=== PATIENT | male | born 1990 | race Caucasian/White ===

== ENCOUNTER 2017-05-31 00:42 | Emergency (ER) | payer OTHER ==
[2017-05-31] MEDS ORDERED: Acetaminophen/oxyCODONE 325-5 MG Tab PO ONE (00:43)
[2017-05-31] MEDS ORDERED: ceFAZolin 1 GM Vial IVPUSH ONE (01:17)
--- NOTE | 2017-05-31 01:35 | EDM.PDOC ---
ED HPI GENERAL MEDICAL PROBLEM - General Chief Complaint: General Stated Complaint: ran over by forklift Time Seen by Provider: 05/31/17 00:58 Source of Information: Reports: Patient History Limitations: Reports: No Limitations - History of Present Illness INITIAL COMMENTS - FREE TEXT/NARRATIVE: This patient is a 27 year old male that presents to the ER. Patient reports that he was drinking tonight and had about 10 beers. Patient reports that him and some friends were playing on a forklift. He reports someone was driving the forklift, when he attempted to jump on the lifts, when he lost his footing. He reports he fell to the ground and the forklift ran over his right foot. Patient denies hitting his head, loc, n, v, vision changes, neck pain, back pain, face pain, chest pain, abd pain, hip/pelvis pain, leg pain, left foot pain. Patient reports his only pain complaint is to the left foot. Patient is alert and oriented. He is intoxicated, but able to stand without ataxia. Patient is talking in full and complete sentences without difficulty. Right lower extremity pulses +2. cap refill <2 sec, sensory/motor function intact, neurovascular intact. Type 1 crush injury. Onset: Today Duration: Hour(s): (1) Location: Reports: Lower Extremity, Right Front/Back Body Image: 1 - small superifical abrasion. 2 - laceration Severity: Moderate Improves with: Reports: None Worsens with: Reports: None Associated Symptoms: Denies: Confusion, Chest Pain, Cough, cough w sputum, Diaphoresis, Fever/Chills, Headaches, Loss of Appetite, Malaise, Nausea/Vomiting , Rash, Seizure, Shortness of Breath, Syncope, Weakness Right Feet Pain Score (Numeric/FACES): 4 - Related Data Allergies Allergy/AdvReac Type Severity Reaction Status Date / Time No Known Allergies Allergy Verified 05/31/17 00:43 Home Meds: Home Meds . [No Known Home Meds] 05/31/17 [History] Past Medical History - Past Health History Medical/Surgical History: Denies Medical/Surgical History Social & Family History - Family History Family Medical History: Noncontributory - Tobacco Use Smoking Status *Q: Never Smoker - Recreational Drug Use Recreational Drug Use: No ED ROS GENERAL - Review of Systems Review Of Systems: See Below Constitutional: Reports: No Symptoms HEENT: Reports: No Symptoms Respiratory: Reports: No Symptoms Cardiovascular: Reports: No Symptoms Endocrine: Reports: No Symptoms GI/Abdominal: Reports: No Symptoms : Reports: No Symptoms Musculoskeletal: Reports: Foot Pain (right) Skin: Reports: Wound (right foot) Neurological: Reports: No Symptoms Psychiatric: Reports: No Symptoms Hematologic/Lymphatic: Reports: No Symptoms Immunologic: Reports: No Symptoms ED EXAM, GENERAL - Physical Exam Exam: See Below Exam Limited By: Intoxication General Appearance: Alert, WD/WN, No Apparent Distress Eye Exam: Bilateral Eye: EOMI, PERRL Ears: Normal External Exam, Normal Canal, Hearing Grossly Normal, Normal TMs Nose: Normal Inspection, Normal Mucosa, No Blood Throat/Mouth: Normal Inspection, Normal Lips, Normal Teeth, Normal Gums, Normal Oropharynx, Normal Voice, No Airway Compromise, Other (superficial abrasion chin. ) Head: Atraumatic, Normocephalic. No: Facial Swelling, Facial Tenderness, Sinus Tenderness Neck: Normal Inspection, Supple, Non-Tender, Full Range of Motion. No: Carotid Bruit, Limited Range of Motion, Lymphadenopathy (L), Lymphadenopathy (R), Tender Lateral, Tender Midline, Thyromegaly Respiratory/Chest: No Respiratory Distress, Lungs Clear, Normal Breath Sounds, No Accessory Muscle Use, Chest Non-Tender Cardiovascular: Normal Peripheral Pulses, Regular Rate, Rhythm, No Edema, No Gallop, No JVD, No Murmur, No Rub Peripheral Pulses: 2+: Radial (L), Radial (R), Posterior Tibial (L), Posterior Tibial (R), Dorsalis Pedis (L), Dorsalis Pedis (R) GI/Abdominal: Normal Bowel Sounds, Soft, Non-Tender, No Organomegaly, No Distention, No Abnormal Bruit, No Mass, Pelvis Stable (Male) Exam: Deferred Rectal (Males) Exam: Deferred Back Exam: Normal Inspection, Full Range of Motion. No: CVA Tenderness (L), CVA Tenderness (R), Decreased Range of Motion, Muscle Spasm, Paraspinal Tenderness, Vertebral Tenderness Extremities: Normal Range of Motion, No Pedal Edema, Normal Capillary Refill, Other (Right foot pain, tender, swelling, open laceration. ) Neurological: Alert, Oriented, CN II-XII Intact, Normal Cognition, Normal Gait, No Motor/Sensory Deficits Psychiatric: Normal Affect, Normal Mood Skin Exam: Warm, Dry, Normal Color, No Rash, Wound/Incision (right foot) Lymphatic: No Adenopathy ED GENERAL MEDICAL PROCEDURES - Laceration/Wound Repair Right Lower Foot Lac/wound length in cm: 10.5 Appearance: Superficial, Mildly Contaminated Distal NVT: Neuro & Vascular Intact, No Tendon Injury Anesthetic Type: Other (Digital block 1st, 2nd, 3rd, 4th digits.) Local Anesthesia - Lidocaine (Xylocaine): 1% Plain Local Anesthesia - Bupivicaine (Marcaine): 0.5% Plain Local Anesthetic Volume: 1cc (each webspace.) Skin Prep: Chlorhexidine (Hibiciens), Providone-Iodine (Betadine), Isopropyl Alcohol (Alcohol) Saline irrigation (cc's): 100 Exploration/Debridement/Repair: Wound Explored, In a Bloodless Field, Explored to Base, No Foreign Material Found, Multiple Flaps Aligned Closed with: Sutures Suture Size: other (5-0) # of Sutures: 22 Suture Type: Nylon, Interrupted Tetanus Status Addressed: Yes Complications: No Course - Vital Signs Last Recorded V/S: Last Vital Signs Temp 97.1 F 05/31/17 00:44 Pulse 100 05/31/17 00:44 Resp 20 05/31/17 00:44 BP 118/77 05/31/17 00:44 Pulse Ox 98 05/31/17 00:44 - Orders/Labs/Meds Orders: Active Orders 24 hr Category Date Time Status Foot Comp Min 3V Rt [CR] Stat Exams 05/31/17 01:17 Taken Tibia Fibula Rt [CR] Routine Exams 05/31/17 Taken Meds: Medications Discontinued Medications Generic Name Dose Route Start Last Admin Trade Name Alex PRN Reason Stop Dose Admin Bupivacaine HCl 10 ml 05/31/17 02:10 05/31/17 04:16 Sensorcaine-Mpf 0.5% INJECT 05/31/17 02:11 10 ml ONETIME ONE Administration Cefazolin Sodium 1 gm 05/31/17 01:17 05/31/17 01:24 Ancef IVPUSH 05/31/17 01:18 1 gm ONETIME ONE Administration Sodium Chloride 1,000 mls @ 1,000 mls/hr 05/31/17 01:48 05/31/17 01:56 Normal Saline IV 05/31/17 02:47 1,000 mls/hr .BOLUS ONE Administration Lidocaine HCl 20 ml 05/31/17 02:10 05/31/17 04:17 Xylocaine 1% INJECT 05/31/17 02:11 20 ml ONETIME ONE Administration Morphine Sulfate 4 mg 05/31/17 01:52 05/31/17 02:13 Morphine IVPUSH 05/31/17 01:53 4 mg ONETIME ONE Administration Ondansetron HCl 4 mg 05/31/17 01:53 05/31/17 02:14 Zofran IVPUSH 05/31/17 01:54 4 mg NOW STA Administration Oxycodone/Acetaminophen 3 packet 05/31/17 02:32 05/31/17 04:21 Take Home: Acetaminophen/Oxycodon, 2 Tab Pack PO 05/31/17 02:33 3 packet ONETIME ONE Administration - Radiology Interpretation Free Text/Narrative:: Right foot: Radiology report: Soft tissue injury, gas of laceration, no fb, no acute fx. Right tib/fib: no acute fx. negative. - Re-Assessments/Exams Free Text/Narrative Re-Assessment/Exam: 05/31/17 01:42 Spoke with aviation program manager at [facility] about patient. Will suture and discharge. Instructed patient about compartment syndrome and infection risk. Departure - Departure Time of Disposition: 04:30 Disposition: Home, Self-Care 01 Condition: Fair Clinical Impression: Laceration Crush injury of right foot Qualifiers: Encounter type: initial encounter Qualified Code(s): S97.81XA - Crushing injury of right foot, initial encounter - Discharge Information Instructions: Compartment Syndrome of the Foot, Laceration Care, Adult, Crush Injury, Fingers or Toes, [id number] Referrals: PCP,None [Primary Care Provider] - Forms: ED Department Discharge Additional Instructions: Followup with your primary care provider 48-72 hours for recheck Return to the ER for worsening of condition or any emergent concerns Watch for signs of infection such as redness, drainage, fever, vomiting. Watch for signs of compartment syndrome, increase in severe pain, tightness in foot, numbness, tingling, loss of function, cold foot, white color foot. Rest Ice Elevate No weight bearing Use crutches Remove stitches in about 10-14 days Percocet 5/325mg 1-2 pills every 4-6 hours as needed for pain #15 no refill #6 take home. Bactrim DS 1 pill twice a day for 10 days #20 no refill No work for 3 days I spoke with aviation program manager Dr. Davis with [facility]: Please call for followup. - My Orders Last 24 Hours: My Active Orders 05/31/17 Tibia Fibula Rt [CR] Routine 05/31/17 01:17 Foot Comp Min 3V Rt [CR] Stat - Assessment/Plan Last 24 Hours: My Active Orders 05/31/17 Tibia Fibula Rt [CR] Routine 05/31/17 01:17 Foot Comp Min 3V Rt [CR] Stat Plan: PLEASE SEE RN NOTE FOR PFSH.
[2017-05-31] MEDS ORDERED: Sodium Chloride 0.9% 1,000 ML IV ONE (01:48)
[2017-05-31] MEDS ORDERED: Morphine 4 MG/ML Syringe IVPUSH ONE (01:52)
[2017-05-31] MEDS ORDERED: Ondansetron 4 MG/2 ML SDV IVPUSH STA (01:53)
[2017-05-31] MEDS ORDERED: Lidocaine 1% 20 ML MDV INJECT ONE (02:10)
[2017-05-31] MEDS ORDERED: Bupivacaine 0.5% 10 ML SDV INJECT ONE (02:10)
[2017-05-31] MEDS ORDERED: Take Home: Acetaminophen/oxyCODONE 325-5 MG, 2 Tab Pack PO ONE (02:32)
== END 2017-05-31 04:55 | disposition home or self-care (01) ==
LOC: CC.ED 00:42
DX: S97.81XA Crushing injury of right foot, initial encounter (principal); S00.81XA Abrasion of other part of head, initial encounter; W20.8XXA Other cause of strike by thrown, projected or falling object, initial encounter
CPT/HCPCS: 12004; 73590; 73630; 96361; 96374; 96375; 99283; A9270; J0690; J2270; J2405; J7030